=== PATIENT | male | born 1970 | race Caucasian/White ===

== ENCOUNTER 2021-11-28 13:18 | Observation (INO) | payer OTHER, MEDICARE ==
[2021-11-28] MEDS ORDERED: NITROGLYCERIN OINT 1 INCH/GM PACKET TOPICAL STA (13:25)
--- NOTE | 2021-11-28 13:30 | ED ---
General Adult HPI - General Stated complaint: right side numbness Time Seen by Provider: 11/28/21 13:18 Source: patient, RN notes reviewed, old records reviewed - History of Present Illness Initial comments: This is a 51-year-old male who presents emergency Department from [facility] where he is rehabilitating from alcohol abuse and cocaine. Patient states she has been having intermittent chest pain lasting 15-20 minutes at a time for the last 4 days. Patient states headache began today but he also started having some tingling to his face arm and leg which has been constant for the last 3 or 4 hours but he has no decreased sensation in no lack of function. Patient states she's had no slurred speech. Patient denies headache patient denies any actual numbness or weakness. Patient denies any recent fever chills or cough. Patient denies any chest pain currently. Patient denies any shortness of breath currently. Patient states the chest pain he had earlier did not radiate anywhere he was not more short of breath than normal. Patient states he is a smoker. Patient states he told me a high blood pressure and he was given Catapres at [facility]. Patient also complaining that he had swelling to the right hand which is resolved at this time - Related Data Home Medications Medication Instructions Recorded Confirmed Acetaminophen [Tylenol 8 Hour] 650 mg PO Q4H PRN MDD 1950 MG 11/28/21 11/28/21 Calcium, Magnesium, Zinc, With Vit 1 tab PO TID PRN 11/28/21 11/28/21 D Chlorpheniramine Maleate 4 mg PO Q4H PRN 11/28/21 11/28/21 [Chlor-Trimeton] Docusate [Colace] 100 mg PO BID PRN 11/28/21 11/28/21 Ibuprofen [Motrin Ib] 600 mg PO Q6H PRN 11/28/21 11/28/21 Mirtazapine [Remeron] 15 - 30 mg PO HS PRN 11/28/21 11/28/21 Multivitamins, Thera [Multivitamin 1 tab PO DAILY 11/28/21 11/28/21 (formulary)] Thiamine [Vitamin B-1] 100 mg PO DAILY 11/28/21 11/28/21 bisacodyL [Dulcolax] 5 mg PO BID PRN 11/28/21 11/28/21 busPIRone HCl [Buspar] 10 mg PO TID 11/28/21 11/28/21 cloNIDine HCL [Catapres] 0.1 - 0.3 mg PO Q4H PRN 11/28/21 11/28/21 lisinopriL [Zestril] 10 mg PO DAILY 11/28/21 11/28/21 ondansetron HCL [Zofran] 8 mg PO Q6H PRN 11/28/21 11/28/21 Allergies Allergy/AdvReac Type Severity Reaction Status Date / Time No Known Allergies Allergy Verified 11/28/21 15:41 Review of Systems ROS Statement: Those systems with pertinent positive or pertinent negative responses have been documented in the HPI. ROS Other: All systems not noted in ROS Statement are negative. General Exam - General Exam Comments Initial Comments: GENERAL: Patient is well-developed and well-nourished. Patient is nontoxic and well- hydrated and is in no acute distress. ENT: Neck is soft and supple. No significant lymphadenopathy is noted. Oropharynx is clear. Moist mucous membranes. Neck has full range of motion without eliciting any pain. EYES: The sclera were anicteric and conjunctiva were pink and moist. Extraocular movements were intact and pupils were equal round and reactive to light. Eyelids were unremarkable. PULMONARY: Unlabored respirations. Good breath sounds bilaterally. No audible rales rhonchi or wheezing was noted. CARDIOVASCULAR: There is a regular rate and rhythm without any murmurs gallops or rubs. ABDOMEN: Soft and nontender with normal bowel sounds. SKIN: Skin is clear with no lesions or rashes and otherwise unremarkable. NEUROLOGIC: Patient is alert and oriented x3. Cranial nerves II through XII are grossly intact. Motor and sensory are also intact. Normal speech, volume and content. Symmetrical smile. Cerebellar exam grossly intact. Patient's NIH is 0 MUSCULOSKELETAL: Normal extremities with adequate strength and full range of motion. No lower extremity swelling or edema. No calf tenderness. LYMPHATICS: No significant lymphadenopathy is noted PSYCHIATRIC: Normal psychiatric evaluation. Course Vital Signs 11/28/21 13:25 Temperature 98.3 F Pulse Rate 75 Respiratory 16 Rate Blood Pressure 143/89 O2 Sat by Pulse 98 Oximetry Medical Decision Making - Medical Decision Making EKG shows sinus rhythm at 62 bpm NC interval 239 QRSs 85 QT interval 371 QTC is 377. Patient's EKG shows no ST segment elevation or depression.0 Chest x-ray shows no acute abnormality. I went back in and reevaluated the patient patient was no longer having any chest pain but continued to have some tingling in the arm and leg I spoke with Dr. Peralta she agreed to admit the patient admitted the patient wrote admitting orders. - Lab Data Result diagrams: 11/28/21 13:42 11/28/21 13:42 Lab Results 11/28/21 11/28/21 11/28/21 Range/Units 12:00 13:42 13:42 WBC 7.8 (3.8-10.6) k/uL RBC 4.32 (4.30-5.90) m/uL Hgb 14.4 (13.0-17.5) gm/dL Hct 44.7 (39.0-53.0) % MCV 103.6 H (80.0-100.0) fL MCH 33.4 (25.0-35.0) pg MCHC 32.2 (31.0-37.0) g/dL RDW 13.3 (11.5-15.5) % Plt Count 235 (150-450) k/uL MPV 7.4 Neutrophils % 65 % Lymphocytes % 23 % Monocytes % 6 % Eosinophils % 3 % Basophils % 1 % Neutrophils # 5.1 (1.3-7.7) k/uL Lymphocytes # 1.8 (1.0-4.8) k/uL Monocytes # 0.5 (0-1.0) k/uL Eosinophils # 0.2 (0-0.7) k/uL Basophils # 0.1 (0-0.2) k/uL Macrocytosis Slight PT 10.7 (9.0-12.0) sec INR 1.0 (<1.2) APTT 21.8 L (22.0-30.0) sec Sodium (137-145) mmol/L Potassium (3.5-5.1) mmol/L Chloride (98-107) mmol/L Carbon Dioxide (22-30) mmol/L Anion Gap mmol/L BUN (9-20) mg/dL Creatinine (0.66-1.25) mg/dL Est GFR (CKD-EPI)AfAm (>60 ml/min/1.73 sqM) Est GFR (CKD-EPI)NonAf (>60 ml/min/1.73 sqM) Glucose (74-99) mg/dL Calcium (8.4-10.2) mg/dL Magnesium (1.6-2.3) mg/dL Total Bilirubin (0.2-1.3) mg/dL AST (17-59) U/L ALT (4-49) U/L Alkaline Phosphatase (38-126) U/L Troponin I (0.000-0.034) ng/mL Total Protein (6.3-8.2) g/dL Albumin (3.5-5.0) g/dL Urine Color Urine Appearance (Clear) Urine pH (5.0-8.0) Ur Specific [place] (1.001-1.035) Urine Protein (Negative) Urine Glucose (UA) (Negative) Urine Ketones (Negative) Urine Blood (Negative) Urine Nitrite (Negative) Urine Bilirubin (Negative) Urine Urobilinogen (<2.0) mg/dL Ur Leukocyte Esterase (Negative) Urine Opiates Screen Not Detected (NotDetected) Ur Oxycodone Screen Not Detected (NotDetected) Urine Methadone Screen Not Detected (NotDetected) Ur Propoxyphene Screen Not Detected (NotDetected) Ur Barbiturates Screen Not Detected (NotDetected) U Tricyclic Antidepress Not Detected (NotDetected) Ur Phencyclidine Scrn Not Detected (NotDetected) Ur Amphetamines Screen Not Detected (NotDetected) U Methamphetamines Scrn Not Detected (NotDetected) U Benzodiazepines Scrn Not Detected (NotDetected) Urine Cocaine Screen Not Detected (NotDetected) U Marijuana (THC) Screen Not Detected (NotDetected) 11/28/21 11/28/21 11/28/21 Range/Units 13:42 13:42 15:06 WBC (3.8-10.6) k/uL RBC (4.30-5.90) m/uL Hgb (13.0-17.5) gm/dL Hct (39.0-53.0) % MCV (80.0-100.0) fL MCH (25.0-35.0) pg MCHC (31.0-37.0) g/dL RDW (11.5-15.5) % Plt Count (150-450) k/uL MPV Neutrophils % % Lymphocytes % % Monocytes % % Eosinophils % % Basophils % % Neutrophils # (1.3-7.7) k/uL Lymphocytes # (1.0-4.8) k/uL Monocytes # (0-1.0) k/uL Eosinophils # (0-0.7) k/uL Basophils # (0-0.2) k/uL Macrocytosis PT (9.0-12.0) sec INR (<1.2) APTT (22.0-30.0) sec Sodium 140 (137-145) mmol/L Potassium 4.0 (3.5-5.1) mmol/L Chloride 108 H (98-107) mmol/L Carbon Dioxide 25 (22-30) mmol/L Anion Gap 7 mmol/L BUN 14 (9-20) mg/dL Creatinine 0.68 (0.66-1.25) mg/dL Est GFR (CKD-EPI)AfAm >90 (>60 ml/min/1.73 sqM) Est GFR (CKD-EPI)NonAf >90 (>60 ml/min/1.73 sqM) Glucose 104 H (74-99) mg/dL Calcium 9.1 (8.4-10.2) mg/dL Magnesium 2.0 (1.6-2.3) mg/dL Total Bilirubin 0.2 (0.2-1.3) mg/dL AST 32 (17-59) U/L ALT 31 (4-49) U/L Alkaline Phosphatase 55 (38-126) U/L Troponin I <0.012 (0.000-0.034) ng/mL Total Protein 6.0 L (6.3-8.2) g/dL Albumin 3.5 (3.5-5.0) g/dL Urine Color Light Yellow Urine Appearance Clear (Clear) Urine pH 5.5 (5.0-8.0) Ur Specific [place] 1.010 (1.001-1.035) Urine Protein Negative (Negative) Urine Glucose (UA) Negative (Negative) Urine Ketones Negative (Negative) Urine Blood Negative (Negative) Urine Nitrite Negative (Negative) Urine Bilirubin Negative (Negative) Urine Urobilinogen <2.0 (<2.0) mg/dL Ur Leukocyte Esterase Negative (Negative) Urine Opiates Screen (NotDetected) Ur Oxycodone Screen (NotDetected) Urine Methadone Screen (NotDetected) Ur Propoxyphene Screen (NotDetected) Ur Barbiturates Screen (NotDetected) U Tricyclic Antidepress (NotDetected) Ur Phencyclidine Scrn (NotDetected) Ur Amphetamines Screen (NotDetected) U Methamphetamines Scrn (NotDetected) U Benzodiazepines Scrn (NotDetected) Urine Cocaine Screen (NotDetected) U Marijuana (THC) Screen (NotDetected) Disposition Clinical Impression: Chest pain Disposition: ADMITTED IP TO THIS HOSP Referrals: None,Stated [Primary Care Provider] - 1-2 days Time of Disposition: 16:12
[2021-11-28 14:00] LABS: Basophils # (A) 0.1 k/uL (0-0.2); Basophils % (A) 1 %; Eosinophils # (A) 0.2 k/uL (0-0.7); Eosinophils % (A) 3 %; HCT 44.7 % (39.0-53.0); HGB 14.4 gm/dL (13.0-17.5); Lymphocytes # (A) 1.8 k/uL (1.0-4.8); Lymphocytes % (A) 23 %; MCH 33.4 pg (25.0-35.0); MCHC 32.2 g/dL (31.0-37.0); MCV 103.6 fL (80.0-100.0); Macrocytosis Slight; Mean Platelet Volume 7.4; Monocytes # (A) 0.5 k/uL (0-1.0); Monocytes % (A) 6 %; Neutrophils # (A) 5.1 k/uL (1.3-7.7); Neutrophils % (A) 65 %; Platelet Count 235 k/uL (150-450); RBC 4.32 m/uL (4.30-5.90); RDW 13.3 % (11.5-15.5); WBC 7.8 k/uL (3.8-10.6)
--- NOTE | 2021-11-28 14:06 | XR ---
EXAMINATION TYPE: XR chest 2V DATE OF EXAM: 11/28/2021 COMPARISON: NONE TECHNIQUE: PA and lateral views submitted. HISTORY: Chest Pain FINDINGS: The lungs are clear and there is no pneumothorax, pleural effusion, or focal pneumonia. Heart size normal. No overt failure. Mild hyperinflation related for asthma or COPD. Scoliosis of the spine. Hyp ertrophic change of the spine. IMPRESSION: 1. No acute process.
[2021-11-28 14:17] LABS: Prothrombin Time 10.7 sec (9.0-12.0)
[2021-11-28 14:24] LABS: Partial Thromboplastin Time 21.8 sec (22.0-30.0)
[2021-11-28 14:26] LABS: ALT 31 U/L (4-49); AST 32 U/L (17-59); African American GFR (CKD) >90 (>60 ml/min/1.73 sqM); Albumin 3.5 g/dL (3.5-5.0); Alkaline Phosphatase 55 U/L (38-126); Anion Gap 7 mmol/L; Blood Urea Nitrogen 14 mg/dL (9-20); Calcium 9.1 mg/dL (8.4-10.2); Carbon Dioxide 25 mmol/L (22-30); Chloride 108 mmol/L (98-107); Glucose 104 mg/dL (74-99); Non-African American GFR(CKD) >90 (>60 ml/min/1.73 sqM); Sodium 140 mmol/L (137-145); Total Bilirubin 0.2 mg/dL (0.2-1.3)
[2021-11-28 15:25] LABS: Appearance,Urine Clear (Clear); Bilirubin,Urine Negative (Negative); Blood,Urine Negative (Negative); Color,Urine Light Yellow; Glucose,Urine (UA) Negative (Negative); Ketones,Urine Negative (Negative); Leukocyte Esterase,Urine Negative (Negative); Nitrite,Urine Negative (Negative); PH, Urine 5.5 (5.0-8.0); Protein,Urine Negative (Negative); Urobilinogen,Urine <2.0 mg/dL (<2.0)
[2021-11-28 15:42] LABS: Amphetamine Screen,Urine Not Detected (NotDetected); Barbiturate Screen,Urine Not Detected (NotDetected); Benzodiazepines Screen,Urine Not Detected (NotDetected); Cocaine Screen,Urine Not Detected (NotDetected); Methadone Screen, Urine Not Detected (NotDetected); Opiate Screen,Urine Not Detected (NotDetected); Oxycodone Screen, Urine Not Detected (NotDetected); Phencyclidine Screen,Urine Not Detected (NotDetected); Tricyclic Antidepressant,Urine Not Detected (NotDetected); Urn Cannabinoid Scrn Not Detected (NotDetected)
[2021-11-28] MEDS ORDERED: NITROGLYCERIN SL TABS 0.4 MG TAB SUBLINGUAL PRN (16:12)
[2021-11-28] MEDS ORDERED: DOCUSATE 100 MG CAP PO PRN (16:16)
[2021-11-28] MEDS ORDERED: cloNIDine HCL 0.1 MG TAB PO PRN (16:33)
[2021-11-28] MEDS: NITROGLYCERIN OINT 1 INCH/GM PACKET TOPICAL SCH ×2 (18:18→23:18)
--- NOTE | 2021-11-28 18:21 | P.HPIM ---
History of Present Illness H&P Date: 11/28/21 History of Presenting Illness: Patient is a 51-year-old male with a past medical history of hypertension, anxiety, PTSD, inflammatory bowel disease status post multiple abdominal surgeries including colostomy and colostomy reversal, alcohol abuse, nicotine dependence, and daily cocaine use. Patient presented to the emergency department from [facility] for chief complaint of chest pain. Patient is currently in inpatient drug and alcohol rehabilitation Center at [facility] where he is undergoing withdrawal from cocaine and alcohol. He reports he last received benzodiazepines 4 days ago for treatment of his withdrawal and states that over the past 4 days he has been experiencing hypertension along with intermittent pain to midsternal chest radiating as a sharp tingling sensation into right arm and right lower jaw. Pt states he was told at this time that his blood pressure was very high and he was given a Catapres at [facility] prior to coming to our facility. Patient reports he is also concerned because he previously had some swelling in his right hand from a previous lab drawn but it is now resolved. Patient denies having any fevers, chills, dizziness, lightheadedness, changes in vision or hearing, changes in or difficulties with speech, dysphasia, palpitations, shortness of breath, exertional dyspnea, abdominal pain, nausea, vomiting, or experiencing any numbness or focal weakness in extremities. Patient underwent full evaluation in the emergency department. Upon arrival vital signs stable with blood pressure 143/89, heart rate 75, respiratory rate 16, temp 98.3F, and SpO2 of 98% on room air. An EKG was completed revealing sinus rhythm at 62 bpm with left ventricular hypertrophy. Chest x-ray was negative for acute cardiopulmonary process revealing mild hyperinflation related to COPD. CBC, coags, and CMP showing no significant abnormalities. Troponin less than 0.012. Urine drug screen negative and urinalysis also negative. Patient admitted under our services with consultation to cardiology. Review of systems: Pertinent positives and negatives as discussed in HPI, a complete review of systems was performed and all other systems are negative. Physical exam: Vital signs reviewed and stable. General: Nontoxic, no distress and appears stated age. Derm: Skin warm and dry, normal coloration for ethnicity. Head: Atraumatic, normocephalic and symmetric. Eyes: EOMs intact, no lid lag, and anicteric sclera Mouth: no lip lesions, mucus membranes moist Cardiovascular: regular rate and rhythm with normal S1S2, no murmur, positive posterior tibial pulses bilaterally, and cap refill < 2 seconds. Lungs: Respirations even, regular, and unlabored on room air. Lungs CTA bilaterally, no rhonchi, no rales, no wheezing, and no accessory muscle usage. Abdominal: soft, nontender to palpation, no guarding, no appreciable organomegaly Ext: ROM intact. No gross muscle atrophy, no edema, no contractures Neuro: Speech clear, face symmetrical and CN II-XII grossly intact with no noted focal neuro deficits Psych: Alert and oriented to person, place, time, and situation. Appropriate and pleasant affect. Assessment and Plan of Care: Chest pain, rule out acute coronary event -Cardiology consulted, appreciate further recommendations -Telemetry monitoring -Trend troponins -Cardiac diet, NPO at midnight -Aspirin -Lipid profile with a.m. labs. -Echocardiogram Hypertension -Monitor vital signs and continue daily medication regimen with lisinopril 10 mg each morning and when necessary clonidine 0.1 mg every 4 hours as needed for BP greater than 160/100. Inflammatory bowel disease status post multiple surgeries including colostomy and colostomy reversal -Continue bowel regimen with docusate 100 mg twice daily as needed for constipation. Alcohol abuse Cocaine abuse -Recommend continued cessation and returning to [facility] upon discharge. The patient is admitted with an anticipated less than 2 midnight stay for evaluation of chest pain CODE STATUS: Full code DVT prophylaxis: Heparin Discussed with: Patient and RN Anticipated discharge date: Tomorrow Anticipated discharge place: Return to [facility] A total of 43 minutes was spent on the care of this complex patient more than 50% of the time was spent in counseling and care coordination. Silvestre Issa NP rendered care for this patient independently, reviewed the findings and plan as documented in the note above. I did not physically speak with or examine the patient on this date. Past Medical History Past Medical History: Hypertension Additional Past Medical History / Comment(s): Diverticulitis Past Surgical History: Bowel Resection, Hernia Repair, Joint Replacement Additional Past Surgical History / Comment(s): approximately 10 abdominal surgeries, bilateral hip replacement Past Psychological History: Anxiety, Depression Smoking Status: Current every day smoker Past Alcohol Use History: Occasional Past Drug Use History: Cocaine, Marijuana Medications and Allergies Home Medications Medication Instructions Recorded Confirmed Type Acetaminophen [Tylenol 8 Hour] 650 mg PO Q4H PRN MDD 1950 MG 11/28/21 11/28/21 History Calcium, Magnesium, Zinc, With Vit 1 tab PO TID PRN 11/28/21 11/28/21 History D Chlorpheniramine Maleate 4 mg PO Q4H PRN 11/28/21 11/28/21 History [Chlor-Trimeton] Docusate [Colace] 100 mg PO BID PRN 11/28/21 11/28/21 History Ibuprofen [Motrin Ib] 600 mg PO Q6H PRN 11/28/21 11/28/21 History Mirtazapine [Remeron] 15 - 30 mg PO HS PRN 11/28/21 11/28/21 History Multivitamins, Thera [Multivitamin 1 tab PO DAILY 11/28/21 11/28/21 History (formulary)] Thiamine [Vitamin B-1] 100 mg PO DAILY 11/28/21 11/28/21 History bisacodyL [Dulcolax] 5 mg PO BID PRN 11/28/21 11/28/21 History busPIRone HCl [Buspar] 10 mg PO TID 11/28/21 11/28/21 History cloNIDine HCL [Catapres] 0.1 - 0.3 mg PO Q4H PRN 11/28/21 11/28/21 History lisinopriL [Zestril] 10 mg PO DAILY 11/28/21 11/28/21 History ondansetron HCL [Zofran] 8 mg PO Q6H PRN 11/28/21 11/28/21 History Allergies Allergy/AdvReac Type Severity Reaction Status Date / Time No Known Allergies Allergy Verified 11/28/21 15:41 Physical Exam Osteopathic Statement: *. No significant issues noted on an osteopathic structural exam other than those noted in the History and Physical/Consult. Vitals: Vital Signs Temp Pulse Resp BP Pulse Ox 11/28/21 13:25 98.3 F 75 16 143/89 98 Intake and Output 11/28/21 11/28/21 11/28/21 06:59 14:59 22:59 Other: Weight 97.069 kg Results CBC & Chem 7: 11/28/21 13:42 11/28/21 13:42 Labs: Abnormal Lab Results - Last 24 Hours (Table) 11/28/21 11/28/21 11/28/21 Range/Units 13:42 13:42 13:42 MCV 103.6 H (80.0-100.0) fL APTT 21.8 L (22.0-30.0) sec Chloride 108 H (98-107) mmol/L Glucose 104 H (74-99) mg/dL Total Protein 6.0 L (6.3-8.2) g/dL
[2021-11-28] MEDS: busPIRone HCl 10 MG TAB PO SCH (21:05)
[2021-11-28] MEDS ORDERED: MIRTAZAPINE 15 MG TAB PO PRN (21:07)
[2021-11-28] MEDS: diphenhydrAMINE 25 MG CAP PO PRN (21:25)
[2021-11-28] MEDS: NICOTINE 21MG/24HR PATCH TRANSDERM SCH (21:25)
[2021-11-28] MEDS: ACETAMINOPHEN TAB 325 MG TAB PO PRN (23:16)
[2021-11-28] MEDS: HEPARIN SODIUM,PORCINE/PF 5,000 UNIT/0.5 ML SYRINGE SQ SCH (23:17)
[2021-11-29 03:38] VITALS: RESP 18
[2021-11-29] MEDS: diphenhydrAMINE 25 MG CAP PO PRN (03:38)
[2021-11-29] MEDS: NITROGLYCERIN OINT 1 INCH/GM PACKET TOPICAL SCH (06:19)
[2021-11-29] MEDS: ACETAMINOPHEN TAB 325 MG TAB PO PRN (06:19)
--- NOTE | 2021-11-29 08:05 | P.CRDCN ---
History of Present Illness Consult date: 11/29/21 History of present illness: History of Present Illness: The patient is a 51-year-old male with known history of chronic tobacco use, hypertension, prior history of alcohol and crack use who was transferred from [facility] for further evaluation. He complained of swelling in the right hand tingling in the hand, shoulder and right lower extremity. He denies any chest discomfort, dyspnea or dizziness. He denies any palpitations. He is average in his exercise tolerance and has no symptoms of chest discomfort. He has no history of cardiac disease. He has a cough related to lisinopril. He has no PND, orthopnea or significant peripheral edema. His cardiac enzymes were unremarkable and his EKG showed no acute changes. Patient has been in rehab for 12 days. He's feeling well this morning and anxious to get back to rehab. He has a prior history of anxiety and PTSD and prior abdominal surgery. Medications: Lisinopril 10 mg daily, clonidine on a when necessary basis, BuSpar Review of Systems: Respiratory: No history of asthma, bronchitis or recent cough. GI: No nausea or vomiting . No history of peptic ulcer disease. No recent GI bleed. : No hematuria or dysuria. Nervous System: No stroke or seizure. Physical Examination: 51-year-old male, alert oriented no apparent distress ,Blood pressure 111/60, Heart rate 57 Head: Normocephalic. Eyes: Sclerae nonicteric. Neck: Good carotid upstroke, no bruit, no jugular venous distention. Lungs: Clear to auscultation. Heart: Regular rate and rhythm, S1-S2, no S3, no rub. No murmur. Abdomen: Soft nontender, positive bowel sounds no organomegaly. Extremities: No edema, intact distal pulses. Labs: Troponin less than 0.012, BUN 14, creatinine 0.68, potassium 4.0, hemoglobin 14.4 EKG: Sinus mechanism with evidence of LVH and nonspecific ST-T wave changes Impression: 1. Right arm tingling, no evidence to suggest cardiac etiology 2. History of hypertension 3. History of chronic tobacco use 4. History of alcohol and crack cocaine abuse, in rehab Plan: 1. Change lisinopril to amlodipine 2. Obtain an echocardiogram with Doppler 3. If no segmental wall motion abnormality the patient can be transferred back to [facility] 4. Depending on his progress further recommendations will be made 5. Thank you for this consult we will follow with you Past Medical History Past Medical History: Hypertension Additional Past Medical History / Comment(s): Diverticulitis History of Any Multi-Drug Resistant Organisms: None Reported Past Surgical History: Bowel Resection, Hernia Repair, Joint Replacement Additional Past Surgical History / Comment(s): approximately 10 abdominal surgeries, bilateral hip replacement Past Anesthesia/Blood Transfusion Reactions: No Reported Reaction Past Psychological History: Anxiety, Depression Smoking Status: Current every day smoker Past Alcohol Use History: Occasional Past Drug Use History: Cocaine, Marijuana Medications and Allergies Home Medications Medication Instructions Recorded Confirmed Type Acetaminophen [Tylenol 8 Hour] 650 mg PO Q4H PRN MDD 1950 MG 11/28/21 11/28/21 History Calcium, Magnesium, Zinc, With Vit 1 tab PO TID PRN 11/28/21 11/28/21 History D Chlorpheniramine Maleate 4 mg PO Q4H PRN 11/28/21 11/28/21 History [Chlor-Trimeton] Docusate [Colace] 100 mg PO BID PRN 11/28/21 11/28/21 History Ibuprofen [Motrin Ib] 600 mg PO Q6H PRN 11/28/21 11/28/21 History Mirtazapine [Remeron] 15 - 30 mg PO HS PRN 11/28/21 11/28/21 History Multivitamins, Thera [Multivitamin 1 tab PO DAILY 11/28/21 11/28/21 History (formulary)] Thiamine [Vitamin B-1] 100 mg PO DAILY 11/28/21 11/28/21 History bisacodyL [Dulcolax] 5 mg PO BID PRN 11/28/21 11/28/21 History busPIRone HCl [Buspar] 10 mg PO TID 11/28/21 11/28/21 History cloNIDine HCL [Catapres] 0.1 - 0.3 mg PO Q4H PRN 11/28/21 11/28/21 History lisinopriL [Zestril] 10 mg PO DAILY 11/28/21 11/28/21 History ondansetron HCL [Zofran] 8 mg PO Q6H PRN 11/28/21 11/28/21 History Allergies Allergy/AdvReac Type Severity Reaction Status Date / Time No Known Allergies Allergy Verified 11/28/21 15:41 Physical Exam Vitals: Vital Signs Temp Pulse Pulse Resp BP BP Pulse Ox 11/29/21 02:00 97.9 F 57 L 18 111/66 96 11/28/21 21:01 97.9 F 54 L 19 138/91 98 11/28/21 16:12 98 11/28/21 13:25 98.3 F 75 16 143/89 98 Intake and Output 11/28/21 11/29/21 11/29/21 22:59 06:59 14:59 Intake Total 500 Balance 500 Intake: Oral 500 Other: Voiding Method Toilet Toilet # Voids 2 Weight 97.069 kg Results 11/28/21 13:42 11/28/21 13:42 Cardiac Enzymes 11/28/21 11/28/21 11/28/21 Range/Units 13:42 13:42 16:53 AST 32 (17-59) U/L Troponin I <0.012 0.013 (0.000-0.034) ng/mL 11/28/21 Range/Units 19:10 AST (17-59) U/L Troponin I <0.012 (0.000-0.034) ng/mL Coagulation 11/28/21 Range/Units 13:42 PT 10.7 (9.0-12.0) sec APTT 21.8 L (22.0-30.0) sec CBC 11/28/21 Range/Units 13:42 WBC 7.8 (3.8-10.6) k/uL RBC 4.32 (4.30-5.90) m/uL Hgb 14.4 (13.0-17.5) gm/dL Hct 44.7 (39.0-53.0) % Plt Count 235 (150-450) k/uL Comprehensive Metabolic Panel 11/28/21 Range/Units 13:42 Sodium 140 (137-145) mmol/L Potassium 4.0 (3.5-5.1) mmol/L Chloride 108 H (98-107) mmol/L Carbon Dioxide 25 (22-30) mmol/L BUN 14 (9-20) mg/dL Creatinine 0.68 (0.66-1.25) mg/dL Glucose 104 H (74-99) mg/dL Calcium 9.1 (8.4-10.2) mg/dL AST 32 (17-59) U/L ALT 31 (4-49) U/L Alkaline Phosphatase 55 (38-126) U/L Total Protein 6.0 L (6.3-8.2) g/dL Albumin 3.5 (3.5-5.0) g/dL Current Medications Generic Name Dose Route Start Last Admin Trade Name Freq PRN Reason Stop Dose Admin Acetaminophen 650 mg 11/28/21 21:48 11/29/21 06:19 Acetaminophen Tab 325 Mg Tab PO 650 mg Q4HR PRN Administration Fever and/ or Pain Amlodipine Besylate 5 mg 11/29/21 09:00 Amlodipine 5 Mg Tab PO DAILY [facility] Aspirin 81 mg 11/29/21 09:00 Aspirin 325 Mg Tab PO DAILY [facility] Buspirone HCl 10 mg 11/28/21 22:00 11/28/21 21:05 Buspirone Hcl 10 Mg Tab PO 10 mg TID POPEYE Administration Clonidine 0.1 mg 11/28/21 16:33 Clonidine Hcl 0.1 Mg Tab PO Q4H PRN X72 HRS BP >160/100 Diphenhydramine HCl 25 mg 11/28/21 21:08 11/29/21 03:38 Diphenhydramine 25 Mg Cap PO 25 mg QID PRN Administration Anxiety Docusate Sodium 100 mg 11/28/21 16:16 Docusate 100 Mg Cap PO BID PRN Constipation Heparin Sodium (Porcine) 5,000 unit 11/29/21 00:00 11/28/21 23:17 Heparin Sodium,Porcine/Pf 5,000 Unit/0.5 Ml Syringe SQ 5,000 unit Q8HR POPEYE Administration Mirtazapine 15 mg 11/28/21 21:07 11/28/21 21:27 Mirtazapine 15 Mg Tab PO 15 mg HS PRN Administration SLEEP Multivitamins 1 each 11/29/21 09:00 Multivitamins, Thera 1 Each Tab PO DAILY [facility] Nicotine 1 patch 11/28/21 21:15 11/28/21 21:25 Nicotine 21mg/24hr Patch TRANSDERM 1 patch DAILY [facility] Administration Nitroglycerin 0.4 mg 11/28/21 16:12 Nitroglycerin Sl Tabs 0.4 Mg Tab SUBLINGUAL Q5M PRN Chest Pain Thiamine HCl 100 mg 11/29/21 09:00 Thiamine 100 Mg Tab PO DAILY P[facility] Intake and Output 11/28/21 11/29/21 11/29/21 22:59 06:59 14:59 Intake Total 500 Balance 500 Intake: Oral 500 Other: Voiding Method Toilet Toilet # Voids 2 Weight 97.069 kg 11/28/21 13:42 11/28/21 13:42
[2021-11-29 08:08] VITALS: BP 127/75; PULSE 61; TEMP 98
[2021-11-29] MEDS ORDERED: MULTIVITAMINS, THERA 1 EACH TAB PO SCH (09:00)
[2021-11-29] MEDS ORDERED: ASPIRIN 325 MG TAB PO SCH (09:00)
[2021-11-29] MEDS ORDERED: lisinopriL 10 MG TAB PO SCH (09:00)
[2021-11-29] MEDS ORDERED: amLODIPine 5 MG TAB PO SCH (09:00)
[2021-11-29] MEDS ORDERED: ASPIRIN 81 MG PO SCH (09:00)
[2021-11-29] MEDS ORDERED: THIAMINE 100 MG TAB PO SCH (09:00)
[2021-11-29] MEDS: NICOTINE 21MG/24HR PATCH TRANSDERM SCH (10:09)
[2021-11-29] MEDS: busPIRone HCl 10 MG TAB PO SCH (10:09)
[2021-11-29] MEDS: HEPARIN SODIUM,PORCINE/PF 5,000 UNIT/0.5 ML SYRINGE SQ SCH (10:10)
[2021-11-29 10:39] LABS: Chol/HDL Ratio 4.21 Ratio; LDL Cholesterol,Calculated 98.4 mg/dL (0.0-131.0)
--- NOTE | 2021-11-29 12:39 | CA ---
Transthoracic Echo Report Name: Gorge Gaston Age: 51 Gender: M : 1970 Exam Date: 11/29/2021 10:13 Exam Location: [place] [facility] Ht (in): 73 Wt (lb): 214 Ordering Physician: Silvestre Issa Attending/Referring Phys: Mottler Operator Christy Del Rosario RDCS Procedure CPT: Indications: Assess structure and function Cardiac Hx: Technical Quality: Fair Contrast 1: Total Dose (mL): Contrast 2: Total Dose (mL): MEASUREMENTS (Male / Female) Normal Values 2D ECHO LV Diastolic Diameter PLAX 4.5 cm 4.2 - 5.9 / 3.9 - 5.3 cm LV Systolic Diameter PLAX 2.5 cm IVS Diastolic Thickness 1.4 cm 0.6 - 1.0 / 0.6 - 0.9 cm LVPW Diastolic Thickness 1.5 cm 0.6 - 1.0 / 0.6 - 0.9 cm LV Relative Wall Thickness 0.6 RV Internal Dim ED PLAX 3.1 cm LA Volume 75.3 cm??? 18 - 58 / 22 - 52 cm??? M-MODE Aortic Root Diameter MM 3.3 cm LA Systolic Diameter MM 3.4 cm LA Ao Ratio MM 1.0 AV Cusp Separation MM 2.2 cm DOPPLER AV Peak Velocity 111.6 cm/s AV Peak Gradient 5.0 mmHg LVOT Peak Velocity 99.0 cm/s LVOT Peak Gradient 3.9 mmHg MV Area PHT 3.2 cm??? Mitral E Point Velocity 84.7 cm/s Mitral A Point Velocity 63.9 cm/s Mitral E to A Ratio 1.3 MV Deceleration Time 234.5 ms MV E' Velocity 8.5 cm/s Mitral E to MV E' Ratio 10.0 TR Peak Velocity 211.4 cm/s TR Peak Gradient 17.9 mmHg Right Ventricular Systolic Press 22.6 mmHg FINDINGS Left Ventricle Moderately increased left ventricular wall thickness. Normal left ventricular systolic function with no obvious regional wall motion abnormalities. Left ventricular ejection fraction is estimated at 55-60 %. Right Ventricle Normal right ventricular size. Right ventricular systolic pressure within normal limits. Right Atrium Normal right atrial size. Left Atrium Moderately increased left atrial volume. Mitral Valve Structurally normal mitral valve. Mild mitral regurgitation. Aortic Valve No aortic valve stenosis or regurgitation. Tricuspid Valve Mild tricuspid regurgitation.structurally normal tricuspid valve. Pulmonic Valve Trace pulmonic regurgitation. Pericardium No pericardial effusion. Aorta Normal size aortic root and proximal ascending aorta. CONCLUSIONS 1. Normal left ventricle size and systolic function 2. Mild mitral and tricuspid regurgitation Previewed by: Dr. Walker Pierce MD (Electronically Signed) Final Date: 29 November 2021 12:37
--- NOTE | 2021-11-29 14:20 | P.DS ---
Providers Date of admission: 11/28/21 16:12 Expected date of discharge: 11/29/21 Attending physician: Elizabet Peralta DO Consults: 11/28/21 16:36 Consult Physician Routine Consulting Provider: Delvin Michelle Consult Reason/Comments: chest pain Do you want consulting provider notified?: Yes Primary care physician: Stated None Hospital Course: Discharge Diagnosis: Chest pain, acute coronary event ruled out. lisinopril was discontinued and patient started on amlodipine 5 mg daily. Hypertension. Monitor vital signs and continue daily medication regimen with amlodipine. Inflammatory bowel disease status post multiple surgeries including colostomy and colostomy reversal. Continue bowel regimen with docusate 100 mg twice daily as needed for constipation. Alcohol abuse. Recommend continued cessation and returning to [facility] upon discharge. Cocaine abuse. Recommend continued cessation and returning to [facility] upon discharge. Hospital Course: Patient is a 51-year-old male with a past medical history of hypertension, anxiety, PTSD, inflammatory bowel disease status post multiple abdominal surgeries including colostomy and colostomy reversal, alcohol abuse, nicotine dependence, and daily cocaine use. Patient presented to the emergency department from [facility] for chief complaint of chest pain. Patient is currently in inpatient drug and alcohol rehabilitation Center at [facility] ere he is undergoing withdrawal from cocaine and alcohol. He reports he last received benzodiazepines 4 days ago for treatment of his withdrawal and states that over the past 4 days he has been experiencing hypertension along with intermittent pain to midsternal chest radiating as a sharp tingling sensation into right arm and right lower jaw. Pt states he was told at this time that his blood pressure was very high and he was given a Catapres at [facility] prior to coming to our facility. Patient reports he is also concerned because he previously had some swelling in his right hand from a previous lab drawn but it is now resolved. Patient denies having any fevers, chills, dizziness, lightheadedness, changes in vision or hearing, changes in or difficulties with speech, dysphasia, palpitations, shortness of breath, exertional dyspnea, abdominal pain, nausea, vomiting, or experiencing any numbness or focal weakness in extremities. Patient underwent full evaluation in the emergency department. Upon arrival vital signs stable with blood pressure 143/89, heart rate 75, respiratory rate 16, temp 98.3F, and SpO2 of 98% on room air. An EKG was completed revealing sinus rhythm at 62 bpm with left ventricular hypertrophy. Chest x-ray was negative for acute cardiopulmonary process revealing mild hyperinflation related to COPD. CBC, coags, and CMP showing no significant abnormalities. Troponin less than 0.012. Urine drug screen negative and urinalysis also negative. Patient admitted under our services with consultation to cardiology. Physical exam: Vital signs reviewed and stable. General: Nontoxic, no distress and appears stated age. Derm: Skin warm and dry, normal coloration for ethnicity. Head: Atraumatic, normocephalic and symmetric. Eyes: EOMs intact, no lid lag, and anicteric sclera Mouth: no lip lesions, mucus membranes moist Cardiovascular: regular rate and rhythm with normal S1S2, no murmur, positive posterior tibial pulses bilaterally, and cap refill < 2 seconds. Lungs: Respirations even, regular, and unlabored on room air. Lungs CTA bilaterally, no rhonchi, no rales, no wheezing, and no accessory muscle usage. Abdominal: soft, nontender to palpation, no guarding, no appreciable organomegaly Ext: ROM intact. No gross muscle atrophy, no edema, no contractures Neuro: Speech clear, face symmetrical and CN II-XII grossly intact with no noted focal neuro deficits Psych: Alert and oriented to person, place, time, and situation. Appropriate and pleasant affect. A total of 35 minutes of time were spent preparing this complex discharge summary. Pt was discharged on 11/29/21 at 2:19 PM Patient Condition at Discharge: Stable Plan - Discharge Summary New Discharge Prescriptions: New amLODIPine [Norvasc] 5 mg PO DAILY 30 Days #30 tab Continue ondansetron HCL [Zofran] 8 mg PO Q6H PRN PRN Reason: Nausea Acetaminophen [Tylenol 8 Hour] 650 mg PO Q4H PRN MDD 1950 MG PRN Reason: Pain Or Fever > 100.5 Thiamine [Vitamin B-1] 100 mg PO DAILY Ibuprofen [Motrin Ib] 600 mg PO Q6H PRN PRN Reason: Pain Or Fever > 100.5 bisacodyL [Dulcolax] 5 mg PO BID PRN PRN Reason: Constipation X3 DAYS Docusate [Colace] 100 mg PO BID PRN PRN Reason: Constipation Chlorpheniramine Maleate [Chlor-Trimeton] 4 mg PO Q4H PRN PRN Reason: ALLERGIES cloNIDine HCL [Catapres] 0.1 - 0.3 mg PO Q4H PRN PRN Reason: X72 HRS BP >160/100 Mirtazapine [Remeron] 15 - 30 mg PO HS PRN PRN Reason: SLEEP Multivitamins, Thera [Multivitamin (formulary)] 1 tab PO DAILY Calcium, Magnesium, Zinc, With Vit D 1 tab PO TID PRN PRN Reason: SUPPLEMENT busPIRone HCl [Buspar] 10 mg PO TID Discontinued lisinopriL [Zestril] 10 mg PO DAILY Discharge Medication List Acetaminophen [Tylenol 8 Hour] 650 mg PO Q4H PRN MDD 1950 MG 11/28/21 [History] Calcium, Magnesium, Zinc, With Vit D 1 tab PO TID PRN 11/28/21 [History] Chlorpheniramine Maleate [Chlor-Trimeton] 4 mg PO Q4H PRN 11/28/21 [History] Docusate [Colace] 100 mg PO BID PRN 11/28/21 [History] Ibuprofen [Motrin Ib] 600 mg PO Q6H PRN 11/28/21 [History] Mirtazapine [Remeron] 15 - 30 mg PO HS PRN 11/28/21 [History] Multivitamins, Thera [Multivitamin (formulary)] 1 tab PO DAILY 11/28/21 [History] Thiamine [Vitamin B-1] 100 mg PO DAILY 11/28/21 [History] bisacodyL [Dulcolax] 5 mg PO BID PRN 11/28/21 [History] busPIRone HCl [Buspar] 10 mg PO TID 11/28/21 [History] cloNIDine HCL [Catapres] 0.1 - 0.3 mg PO Q4H PRN 11/28/21 [History] ondansetron HCL [Zofran] 8 mg PO Q6H PRN 11/28/21 [History] amLODIPine [Norvasc] 5 mg PO DAILY 30 Days #30 tab 11/29/21 [Rx] Follow up Appointment(s)/Referral(s): [facility] [Outside] - As Needed (called ride will be on way) None,Stated [Primary Care Provider] - 1-2 days Patient Instructions/Handouts: Chest Pain (DC) Activity/Diet/Wound Care/Special Instructions: Activity: As tolerated. Take breaks as needed. Diet: Heart healthy and carb consistent diet. Avoid salts, or foods with hidden salts such as canned or boxed foods and frozen dinners. Extra salt makes your heart work harder and traps the fluid in your body for longer. Special Instructions: Take all of your medications as directed and remember to keep all of your doctor's appointments and follow-up as needed. Good luck on your journey towards recovery, strongly recommend continued stopping of the use of any alcohol and cocaine. Thank you for allowing us to participate in your care, it was truly a pleasure having you for our patient!!! Patient medically cleared to return to [facility]. Discharge Disposition: HOME SELF-CARE
== END 2021-11-29 15:10 | disposition home or self-care (01) ==
LOC: EC 13:18 → 6NMEDSUR 16:12
PROVIDERS: ADMIT Internal Medicine; ATTEND Internal Medicine
DX: R07.89 Other chest pain (principal); I11.9 Hypertensive heart disease without heart failure; F10.10 Alcohol abuse, uncomplicated; F14.10 Cocaine abuse, uncomplicated; I08.1 Rheumatic disorders of both mitral and tricuspid valves; F12.90 Cannabis use, unspecified, uncomplicated; M41.80 Other forms of scoliosis, site unspecified; F17.200 Nicotine dependence, unspecified, uncomplicated; F41.9 Anxiety disorder, unspecified; F32.A Depression, unspecified; F43.10 Post-traumatic stress disorder, unspecified; Z79.899 Other long term (current) drug therapy; Z96.643 Presence of artificial hip joint, bilateral
CPT/HCPCS: 96372 ×2; 99285; 36415; 93005; 93306; 80061; 80053; 83735; 84484; 85025; 85610; 85730; 81003; 80306; 71046; G0378 ×2; S4990 ×2; J1644 ×2

== ENCOUNTER 2023-04-01 13:31 | Observation (INO) | payer OTHER, MEDICARE ==
[2023-04-01] MEDS ORDERED: methylPREDNISolone SOD SUCCI 125 MG/2 ML VIAL IV STA (13:42)
--- NOTE | 2023-04-01 13:50 | ED ---
SOB HPI - General Chief Complaint: Shortness of Breath Stated Complaint: BENJI Time Seen by Provider: 04/01/23 13:33 Source: patient, EMS, RN notes reviewed Mode of arrival: EMS Limitations: no limitations - History of Present Illness Initial Comments: 53-year-old male presents emergency Department with chief complaint of shortness breath, cough congestion. Patient states he's been sick for over a week. Patient's been on multiple antibiotics, steroids. Patient did receive [address] to emergency department from [place]. Patient states that he's had recurrent pneumonia when he ends up in rehab. Patient states he is a daily smoker he states he has some chest pain associated with this. - Related Data Home Medications Medication Instructions Recorded Confirmed Calcium, Magnesium, Zinc, With Vit 1 tab PO TID PRN 11/28/21 04/01/23 D Chlorpheniramine Maleate 4 mg PO Q4H PRN 11/28/21 04/01/23 [Chlor-Trimeton] Docusate [Colace] 100 mg PO BID PRN 11/28/21 04/01/23 Ibuprofen [Motrin Ib] 600 mg PO Q6H PRN 11/28/21 04/01/23 Mirtazapine [Remeron] 15 mg PO HS 11/28/21 04/01/23 Multivitamins, Thera [Multivitamin 1 tab PO DAILY 11/28/21 04/01/23 (formulary)] Thiamine [Vitamin B-1] 100 mg PO DAILY 11/28/21 04/01/23 cloNIDine HCL [Catapres] 0.1 mg PO Q4H PRN 11/28/21 04/01/23 ondansetron HCL [Zofran] 8 mg PO Q4-6H PRN 11/28/21 04/01/23 Acetaminophen Tab [Tylenol] 650 mg PO Q4H PRN 04/01/23 04/01/23 Albuterol Nebulized [Ventolin 2.5 mg INHALATION RT-Q4H PRN 04/01/23 04/01/23 Nebulized] Loperamide HCl [Loperamide] 4 mg PO QID PRN 04/01/23 04/01/23 Mag Hydrox/Aluminum Hyd/Simeth 30 ml PO Q4H PRN 04/01/23 04/01/23 [Mylanta Maximum Strength Liq] Melatonin 5 mg PO HS 04/01/23 04/01/23 guaiFENesin SYRUP 100MG/5ML 200 mg PO Q4H PRN 04/01/23 04/01/23 [Robitussin] Previous Rx's Medication Instructions Recorded LORazepam [Ativan] 1 mg PO BID PRN #6 tab 04/03/23 Lurasidone [Latuda] 60 mg PO HS #30 tab 04/03/23 amLODIPine [Norvasc] 5 mg PO DAILY #30 tab 04/03/23 buPROPion XL [Wellbutrin XL] 300 mg PO DAILY #30 tab 04/03/23 predniSONE 50 mg PO DAILY #3 tab 04/03/23 Allergies Allergy/AdvReac Type Severity Reaction Status Date / Time No Known Allergies Allergy Verified 04/01/23 16:51 Review of Systems ROS Statement: Those systems with pertinent positive or pertinent negative responses have been documented in the HPI. ROS Other: All systems not noted in ROS Statement are negative. Past Medical History Past Medical History: Hypertension Additional Past Medical History / Comment(s): Diverticulitis History of Any Multi-Drug Resistant Organisms: None Reported Past Surgical History: Bowel Resection, Hernia Repair, Joint Replacement Additional Past Surgical History / Comment(s): approximately 10 abdominal surgeries, bilateral hip replacement Past Anesthesia/Blood Transfusion Reactions: No Reported Reaction Past Psychological History: Anxiety, Depression Smoking Status: Current every day smoker Past Alcohol Use History: Abuse Past Drug Use History: Cocaine, Marijuana General Exam Limitations: no limitations General appearance: alert, in no apparent distress Head exam: Present: atraumatic, normocephalic, normal inspection Eye exam: Present: normal appearance, PERRL, EOMI. Absent: scleral icterus, conjunctival injection, periorbital swelling ENT exam: Present: normal exam, normal oropharynx, mucous membranes moist Neck exam: Present: normal inspection, full ROM. Absent: tenderness, meningismus, lymphadenopathy Respiratory exam: Present: respiratory distress, wheezes, rhonchi. Absent: normal lung sounds bilaterally, rales, stridor Cardiovascular Exam: Present: regular rate, normal rhythm, normal heart sounds. Absent: systolic murmur, diastolic murmur, rubs, gallop, clicks GI/Abdominal exam: Present: soft, normal bowel sounds. Absent: distended, tenderness, guarding, rebound, rigid Course Vital Signs 04/01/23 04/01/23 04/01/23 13:32 15:00 15:16 Temperature Pulse Rate 72 75 75 Respiratory 20 Rate Blood Pressure 138/80 O2 Sat by Pulse 97 Oximetry 04/01/23 16:50 Temperature 98.0 F Pulse Rate 66 Respiratory 20 Rate Blood Pressure 136/86 O2 Sat by Pulse 98 Oximetry - Reevaluation(s) Reevaluation #1: 04/01/23 15:46 Reevaluated after 2 or breathing treatments he's had minimal improvement continues to have diffuse bronchospasms Medical Decision Making - Medical Decision Making Was pt. sent in by a medical professional or institution (, PA, CASH GRAIN FARMER, urgent care, hospital, or detention...) When possible be specific @ -No Did you speak to anyone other than the patient for history (EMS, parent, family, police, friend...)? What history was obtained from this source @ -No Did you review nursing and triage notes (agree or disagree)? Why? @ -I reviewed and agree with nursing and triage notes Were old charts reviewed (outside hosp., previous admission, EMS record, old EKG, old radiological studies, urgent care reports/EKG's, detention records)? Report findings @ -Labs, imaging Differential Diagnosis (chest pain, altered mental status, abdominal pain women, abdominal pain men, vaginal bleeding, weakness, fever, dyspnea, syncope, headache, dizziness, GI bleed, back pain, seizure, CVA, palpatations, mental health, musculoskeletal)? @ -[Differential Dyspnea: Coronary syndrome, arrhythmia, tamponade, asthma, COPD, pulmonary embolism, pneumonia, pneumothorax, pulmonary effusion, anaphylaxis, diabetic ketoacidosis, flailed chest, pulmonary contusion, diaphragmatic rupture, anemia, neuromuscular, this is not meant to be an all-inclusive list. s EKG interpreted by me (3pts min.). @ -As above X-rays interpreted by me (1pt min.). @ -Chest x-ray shows COPD changes CT interpreted by me (1pt min.). @ -None done U/S interpreted by me (1pt. min.). @ -None done What testing was considered but not performed or refused? (CT, X-rays, U/S, labs)? Why? @ -None What meds were considered but not given or refused? Why? @ -None Did you discuss the management of the patient with other professionals (professionals i.e. DrGibson, PA, CASH GRAIN FARMER, lab, RT, psych nurse, social media marketer, orthopaedic physician assistant, teacher, probation and parole officer, case operator)? Give summary @ -[Jewelry Store Manager for admission Was smoking cessation discussed for >3mins.? @ -No Was critical care preformed (if so, how long)? @ -No Were there social determinants of health that impacted care today? How? (Homelessness, low income, unemployed, alcoholism, drug addiction, transporta tion, low edu. Level, literacy, decrease access to med. care, [place] [facility], rehab)? @ -No Was there de-escalation of care discussed even if they declined (Discuss DNR or withdrawal of care, Hospice)? DNR status @ -No What co-morbidities impacted this encounter? (DM, HTN, Smoking, COPD, CAD, Cancer, CVA, ARF, Chemo, Hep., AIDS, mental health diagnosis, sleep apnea, morbid obesity)? @ -None Was patient admitted / discharged? Hospital course, mention meds given and route, prescriptions, significant lab abnormalities, going to OR and other pertinent info. @ -Admitted patient continues to have dyspnea, increasing shortness of breath after multiple breathing treatments, steroids. Patient be admitted for COPD exacerbation. Patient is having chest pain will be asked for cardiac rule out also. Undiagnosed new problem with uncertain prognosis? @ -No Drug Therapy requiring intensive monitoring for toxicity (Heparin, Nitro, Insulin, Cardizem)? @ -No Were any procedures done? @ -No Diagnosis/symptom? @ -COPD exacerbation Acute, or Chronic, or Acute on Chronic? @ -[Acute Uncomplicated (without systemic symptoms) or Complicated (systemic symptoms)? @ -[, Complicated Side effects of treatment? @ -No Exacerbation, Progression, or Severe Exacerbation? @ -[Exacerbation Poses a threat to life or bodily function? How? (Chest pain, USA, MD, pneumonia, PE, COPD, DKA, ARF, appy, cholecystitis, CVA, Diverticulitis, Homicidal, Suicidal, threat to staff... and all critical care pts) @ -yes COPD, possible respiratory failure - Lab Data Result diagrams: 04/01/23 13:58 04/01/23 13:58 Lab Results 04/01/23 04/01/23 04/01/23 Range/Units 13:58 13:58 13:58 WBC 8.8 (3.8-10.6) k/uL RBC 4.55 (4.30-5.90) m/uL Hgb 14.8 (13.0-17.5) gm/dL Hct 44.5 (39.0-53.0) % MCV 97.9 (80.0-100.0) fL MCH 32.5 (25.0-35.0) pg MCHC 33.2 (31.0-37.0) g/dL RDW 14.3 (11.5-15.5) % Plt Count 238 (150-450) k/uL MPV 7.1 Neutrophils % 69 % Lymphocytes % 23 % Monocytes % 5 % Eosinophils % 2 % Basophils % 1 % Neutrophils # 6.1 (1.3-7.7) k/uL Lymphocytes # 2.0 (1.0-4.8) k/uL Monocytes # 0.4 (0-1.0) k/uL Eosinophils # 0.2 (0-0.7) k/uL Basophils # 0.0 (0-0.2) k/uL PT 10.3 (10.0-12.5) sec INR 0.9 (<1.2) APTT 22.2 (22.0-30.0) sec Sodium 139 (137-145) mmol/L Potassium 4.3 (3.5-5.1) mmol/L Chloride 105 (98-107) mmol/L Carbon Dioxide 25 (22-30) mmol/L Anion Gap 9 mmol/L BUN 20 (9-20) mg/dL Creatinine 0.66 (0.66-1.25) mg/dL Est GFR (CKD-EPI)AfAm >90 (>60 ml/min/1.73 sqM) Est GFR (CKD-EPI)NonAf >90 (>60 ml/min/1.73 sqM) Glucose 107 H (74-99) mg/dL Plasma Lactic Acid Erick (0.7-2.0) mmol/L Calcium 9.7 (8.4-10.2) mg/dL Magnesium 2.3 (1.6-2.3) mg/dL Total Bilirubin 0.3 (0.2-1.3) mg/dL AST 29 (17-59) U/L ALT 40 (4-49) U/L Alkaline Phosphatase 78 (38-126) U/L Troponin I (0.000-0.034) ng/mL Total Protein 6.8 (6.3-8.2) g/dL Albumin 3.8 (3.5-5.0) g/dL Influenza Type A (PCR) (Not Detectd) Influenza Type B (PCR) (Not Detectd) RSV (PCR) (Not Detectd) SARS-CoV-2 (PCR) (Not Detectd) 04/01/23 04/01/23 04/01/23 Range/Units 13:58 13:58 13:58 WBC (3.8-10.6) k/uL RBC (4.30-5.90) m/uL Hgb (13.0-17.5) gm/dL Hct (39.0-53.0) % MCV (80.0-100.0) fL MCH (25.0-35.0) pg MCHC (31.0-37.0) g/dL RDW (11.5-15.5) % Plt Count (150-450) k/uL MPV Neutrophils % % Lymphocytes % % Monocytes % % Eosinophils % % Basophils % % Neutrophils # (1.3-7.7) k/uL Lymphocytes # (1.0-4.8) k/uL Monocytes # (0-1.0) k/uL Eosinophils # (0-0.7) k/uL Basophils # (0-0.2) k/uL PT (10.0-12.5) sec INR (<1.2) APTT (22.0-30.0) sec Sodium (137-145) mmol/L Potassium (3.5-5.1) mmol/L Chloride (98-107) mmol/L Carbon Dioxide (22-30) mmol/L Anion Gap mmol/L BUN (9-20) mg/dL Creatinine (0.66-1.25) mg/dL Est GFR (CKD-EPI)AfAm (>60 ml/min/1.73 sqM) Est GFR (CKD-EPI)NonAf (>60 ml/min/1.73 sqM) Glucose (74-99) mg/dL Plasma Lactic Acid Erick 1.8 (0.7-2.0) mmol/L Calcium (8.4-10.2) mg/dL Magnesium (1.6-2.3) mg/dL Total Bilirubin (0.2-1.3) mg/dL AST (17-59) U/L ALT (4-49) U/L Alkaline Phosphatase (38-126) U/L Troponin I <0.012 (0.000-0.034) ng/mL Total Protein (6.3-8.2) g/dL Albumin (3.5-5.0) g/dL Influenza Type A (PCR) Not Detected (Not Detectd) Influenza Type B (PCR) Not Detected (Not Detectd) RSV (PCR) Not Detected (Not Detectd) SARS-CoV-2 (PCR) Not Detected (Not Detectd) - EKG Data -: EKG Interpreted by Me EKG Comments: EKG performed at 14:09 sinus rhythm with rate of 70 AK 152 QRS 84 QT/QTC 369/390 Disposition Clinical Impression: COPD exacerbation, Chest pain Disposition: ADMITTED IP TO THIS HOSP Condition: Stable Time of Disposition: 15:48
[2023-04-01 14:27] LABS: Basophils % (A) 1 %; Eosinophils # (A) 0.2 k/uL (0-0.7); Eosinophils % (A) 2 %; HCT 44.5 % (39.0-53.0); HGB 14.8 gm/dL (13.0-17.5); Lymphocytes % (A) 23 %; MCH 32.5 pg (25.0-35.0); MCHC 33.2 g/dL (31.0-37.0); MCV 97.9 fL (80.0-100.0); Mean Platelet Volume 7.1; Monocytes # (A) 0.4 k/uL (0-1.0); Monocytes % (A) 5 %; Neutrophils # (A) 6.1 k/uL (1.3-7.7); Neutrophils % (A) 69 %; Platelet Count 238 k/uL (150-450); RBC 4.55 m/uL (4.30-5.90); RDW 14.3 % (11.5-15.5); WBC 8.8 k/uL (3.8-10.6)
--- NOTE | 2023-04-01 14:32 | XR ---
EXAMINATION TYPE: XR chest 2V DATE OF EXAM: 04/01/2023 COMPARISON: 11/28/2021 HISTORY: 53 year-old male shortness of breath, difficulty breathing, chest pain TECHNIQUE: PA and lateral views FINDINGS: The cardiomediastinal silhouette, aorta, and pulmonary vasculature are within normal limits. Hyperinf lation. Mild interstitial prominence is unchanged. No consolidation or pleural effusion. Slight dextroconvexed curvature. IMPRESSION: COPD and chronic changes. No definite acute process.
[2023-04-01 14:38] LABS: ALT 40 U/L (4-49); AST 29 U/L (17-59); African American GFR (CKD) >90 (>60 ml/min/1.73 sqM); Albumin 3.8 g/dL (3.5-5.0); Alkaline Phosphatase 78 U/L (38-126); Anion Gap 9 mmol/L; Blood Urea Nitrogen 20 mg/dL (9-20); Calcium 9.7 mg/dL (8.4-10.2); Carbon Dioxide 25 mmol/L (22-30); Chloride 105 mmol/L (98-107); Glucose 107 mg/dL (74-99); Magnesium 2.3 mg/dL (1.6-2.3); Non-African American GFR(CKD) >90 (>60 ml/min/1.73 sqM); Potassium 4.3 mmol/L (3.5-5.1); Sodium 139 mmol/L (137-145); Total Bilirubin 0.3 mg/dL (0.2-1.3); Total Protein 6.8 g/dL (6.3-8.2)
[2023-04-01 14:41] LABS: INR 0.9 (<1.2); Partial Thromboplastin Time 22.2 sec (22.0-30.0); Prothrombin Time 10.3 sec (10.0-12.5)
[2023-04-01] MEDS ORDERED: ALBUTEROL NEBULIZED 2.5 MG/3 ML INHALATION STA (14:47)
[2023-04-01] MEDS ORDERED: IPRATROPIUM-ALBUTEROL 3 ML NEB INHALATION PRN (15:48)
[2023-04-01] MEDS ORDERED: NALOXONE 0.4 MG/ML 1 ML VIAL IVP PRN (15:48)
[2023-04-01] MEDS ORDERED: BENZONATATE 100 MG CAP PO PRN (15:48)
[2023-04-01] MEDS ORDERED: ONDANSETRON 4 MG/2 ML VIAL IVP PRN (16:01)
--- NOTE | 2023-04-01 16:29 | P.HPIM ---
History of Present Illness H&P Date: 04/01/23 53-year-old male with PMH of hypertension, anxiety, PTSD, history of alcohol and crack cocaine abuse presents the ED for shortness of breath and wheezing. Patient reports being at [facility] for the past 2 weeks. Symptoms have been progressively getting worse since then. Reports cough productive of sputum (unable to describe). Reports chest tightness with cough. Admits to smoking crack and atleast 1/2 pack of cigarettes daily since 18 years old. Attempted breathing treatments, course of Augmentin and Azithromycin with no relief. In the ED, he underwent extensive evaluation. Vital signs stable. CBC was unremarkable. Coag panel within normal limits. CMP showed glucose 107. Lactic acid 1.8. Troponin less than 0.012. COVID-19, RSV, influenza negative. Chest x-ray no acute process. EKG sinus rhythm. Patient is admitted for COPD exacerbation with pulmonology consultation. Started on DuoNeb scheduled and as needed for shortness of breath and wheezing along with Solu-Medrol. General: non toxic, no distress, appears at stated age Derm: warm, dry Head: atraumatic, normocephalic, symmetric Eyes: EOMI, no lid lag, anicteric sclera Mouth: no lip lesion, mucus membranes moist Cardiovascular: S1S2 reg, no murmur Lungs: Diffuse wheezing bilateral, no rhonchi, no rales , no accessory muscle use Abdominal: soft, nontender to palpation, no guarding, no appreciable organomegaly Ext: no gross muscle atrophy, no edema, no contractures Neuro: No focal neurologic deficits Psych: Alert, oriented, appropriate affect Based on my assessment of this patient, this patient meets a high complexity level of care. Patient has an acute diagnosis of COPD exacerbation that poses a threat to life or bodily function. COPD exacerbation secondary to acute bronchitis: DuoNeb scheduled and as needed for shortness of breath or wheezing. Pulmicort INH BID. Solumedrol 60 mg IV Q6H. Doxycycline 100 mg PO BID x 5 days. Telemetry monitoring. Pulmonology consult. Hypertension: Amlodipine 5 mg PO QD. Anxiety and PTSD: Ativan 1 mg PO TID PRN. History of alcohol abuse History of drug abuse CODE STATUS: FULL CODE DVT Prophylaxis: Lovenox SQ GI Prophylaxis: Designated medical POA if patient is not able to make medical decisions for themselves: I have reviewed the following sap consultant notes: I have reviewed the results of the following tests: As above I have ordered the following tests: As above I have discussed the care of this patient with the following independent historian: I have independently interpreted the following test below: EKG. CXR. I have discussed the management of this patient with the following physician: Discussed with the ED provider in detail. Past Medical History Past Medical History: Hypertension Additional Past Medical History / Comment(s): Diverticulitis History of Any Multi-Drug Resistant Organisms: None Reported Past Surgical History: Bowel Resection, Hernia Repair, Joint Replacement Additional Past Surgical History / Comment(s): approximately 10 abdominal surgeries, bilateral hip replacement Past Anesthesia/Blood Transfusion Reactions: No Reported Reaction Past Psychological History: Anxiety, Depression Smoking Status: Current every day smoker Past Alcohol Use History: Abuse Past Drug Use History: Cocaine, Marijuana Medications and Allergies Home Medications Medication Instructions Recorded Confirmed Type Acetaminophen [Tylenol 8 Hour] 650 mg PO Q4H PRN MDD 1950 MG 11/28/21 11/28/21 History Calcium, Magnesium, Zinc, With Vit 1 tab PO TID PRN 11/28/21 11/28/21 History D Chlorpheniramine Maleate 4 mg PO Q4H PRN 11/28/21 11/28/21 History [Chlor-Trimeton] Docusate [Colace] 100 mg PO BID PRN 11/28/21 11/28/21 History Ibuprofen [Motrin Ib] 600 mg PO Q6H PRN 11/28/21 11/28/21 History Mirtazapine [Remeron] 15 - 30 mg PO HS PRN 11/28/21 11/28/21 History Multivitamins, Thera [Multivitamin 1 tab PO DAILY 11/28/21 11/28/21 History (formulary)] Thiamine [Vitamin B-1] 100 mg PO DAILY 11/28/21 11/28/21 History bisacodyL [Dulcolax] 5 mg PO BID PRN 11/28/21 11/28/21 History busPIRone HCl [Buspar] 10 mg PO TID 11/28/21 11/28/21 History cloNIDine HCL [Catapres] 0.1 - 0.3 mg PO Q4H PRN 11/28/21 11/28/21 History ondansetron HCL [Zofran] 8 mg PO Q6H PRN 11/28/21 11/28/21 History amLODIPine [Norvasc] 5 mg PO DAILY 30 Days #30 tab 11/29/21 Rx Allergies Allergy/AdvReac Type Severity Reaction Status Date / Time No Known Allergies Allergy Verified 11/28/21 15:41 Physical Exam Vitals: Vital Signs Pulse Resp BP Pulse Ox 04/01/23 15:16 75 04/01/23 15:00 75 04/01/23 13:32 72 20 138/80 97 Intake and Output 04/01/23 04/01/23 04/01/23 06:59 14:59 22:59 Other: Weight 108.862 kg Results CBC & Chem 7: 04/01/23 13:58 04/01/23 13:58 Labs: Abnormal Lab Results - Last 24 Hours (Table) 04/01/23 Range/Units 13:58 Glucose 107 H (74-99) mg/dL
[2023-04-01] MEDS: IPRATROPIUM-ALBUTEROL 3 ML NEB INHALATION SCH ×2 (16:38→18:11)
[2023-04-01] MEDS: LORazepam 1 MG TAB PO PRN (16:55)
[2023-04-01] MEDS: methylPREDNISolone SOD SUCCI 125 MG/2 ML VIAL IV SCH (17:38)
[2023-04-01] MEDS: BUDESONIDE 1 MG/2 ML NEBU INHALATION SCH (18:18)
[2023-04-01] MEDS: DOXYCYCLINE 100 MG CAP PO SCH (20:03)
[2023-04-01] MEDS: MELATONIN 3 MG TABLET PO PRN (21:04)
[2023-04-01] MEDS: MIRTAZAPINE 15 MG TAB PO SCH (21:04)
[2023-04-01] MEDS: ACETAMINOPHEN TAB 325 MG TAB PO PRN (21:07)
[2023-04-02] MEDS: LORazepam 1 MG TAB PO PRN ×2 (00:33→08:03)
[2023-04-02] MEDS: ACETAMINOPHEN TAB 325 MG TAB PO PRN ×4 (00:33→20:37)
[2023-04-02] MEDS: methylPREDNISolone SOD SUCCI 125 MG/2 ML VIAL IV SCH ×5 (00:33→23:14)
[2023-04-02] MEDS: amLODIPine 5 MG TAB PO SCH (08:02)
[2023-04-02] MEDS: ENOXAPARIN 40 MG/0.4 ML SYRINGE SQ SCH (08:03)
[2023-04-02] MEDS: DOXYCYCLINE 100 MG CAP PO SCH ×2 (08:03→20:38)
[2023-04-02] MEDS: FORMOTEROL FUMARATE 20 MCG/2 ML NEBU INHALATION SCH ×2 (08:29→18:04)
[2023-04-02] MEDS: BUDESONIDE 1 MG/2 ML NEBU INHALATION SCH ×2 (08:29→18:04)
[2023-04-02] MEDS: IPRATROPIUM-ALBUTEROL 3 ML NEB INHALATION SCH ×4 (08:29→18:04)
[2023-04-02] MEDS ORDERED: LORazepam 2 MG/ML INJ IV STA (08:52)
--- NOTE | 2023-04-02 10:42 | P.CNPUL ---
History of Present Illness Consult date: 04/02/23 Requesting physician: Bill Vila Reason for consult: dyspnea Chief complaint: Shortness of breath, cough, congestion History of present illness: This is a 53-year-old male patient with a history of attention, diverticulitis with previous bowel resection, anxiety/depression, 35 years of smoking, vaping, marijuanause , heavy alcohol abuse and crack cocaine use. He is currently in rehabilitation at [facility] and was admitted there on 03/22/2023. He was having ongoing issues with shortness of breath, cough and congestion and was admitted here yesterday for the same. Chest x-ray showed no acute pulmonary process. A count 8.8. Hemoglobin 14.8. Sodium 139. Potassium 4.3. Bicarb 25. BUN 20. Creatinine 0.66. Glucose 107. AST 29. ALT 40. Troponin negative 1. Viral screen negative. He is seen today in consultation on the regular medical floor. He sitting up in bed. Awake and alert in no acute distress. Maintaining O2 saturations in the 90s on room air. He has a dry nonproductive cough. No fever chills. He is feeling better today compared to yesterday. He was initiated on inhalations, Pulmicort and Perforomist inhalations, IV Solu-Medrol. Antibiotics in the form of Vibramycin. Lovenox for DVT prophylaxis. Review of Systems REVIEW OF SYSTEMS: CONSTITUTIONAL: Denies any recent significant weight loss or weight gain. EYES: Denies change in vision. EARS, NOSE, MOUTH, THROAT: Denies headaches, denies sore throat. CARDIOVASCULAR: Denies chest pain, palpitations or syncopal episodes. RESPIRATORY: Positive for shortness of breath, cough, congestion no hemoptysis. GASTROINTESTINAL: Denies change in appetite, denies abdominal pain GENITOURINARY: Denies hematuria, denies infections. MUSKULOSKELETAL: Denies pain, denies swelling. INTEGUMENTARY: Denies rash, denies eczema. NEUROLOGICAL: Denies recent memory loss, no recent seizure activity. PSYCHIATRIC: Denies anxiety, denies depression. HEMATOLOGIC/LYMPHATIC: Denies anemia, denies enlarged lymph nodes. Past Medical History Past Medical History: Hypertension Additional Past Medical History / Comment(s): Diverticulitis History of Any Multi-Drug Resistant Organisms: None Reported Past Surgical History: Bowel Resection, Hernia Repair, Joint Replacement Additional Past Surgical History / Comment(s): approximately 10 abdominal bains rgeries, bilateral hip replacement Past Anesthesia/Blood Transfusion Reactions: No Reported Reaction Past Psychological History: Anxiety, Depression Smoking Status: Current every day smoker Past Alcohol Use History: Abuse Past Drug Use History: Cocaine, Marijuana Medications and Allergies Home Medications Medication Instructions Recorded Confirmed Type Calcium, Magnesium, Zinc, With Vit 1 tab PO TID PRN 11/28/21 04/01/23 History D Chlorpheniramine Maleate 4 mg PO Q4H PRN 11/28/21 04/01/23 History [Chlor-Trimeton] Docusate [Colace] 100 mg PO BID PRN 11/28/21 04/01/23 History Ibuprofen [Motrin Ib] 600 mg PO Q6H PRN 11/28/21 04/01/23 History Mirtazapine [Remeron] 15 mg PO HS 11/28/21 04/01/23 History Multivitamins, Thera [Multivitamin 1 tab PO DAILY 11/28/21 04/01/23 History (formulary)] Thiamine [Vitamin B-1] 100 mg PO DAILY 11/28/21 04/01/23 History busPIRone HCl [Buspar] 10 mg PO TID 11/28/21 04/01/23 History cloNIDine HCL [Catapres] 0.1 mg PO Q4H PRN 11/28/21 04/01/23 History ondansetron HCL [Zofran] 8 mg PO Q4-6H PRN 11/28/21 04/01/23 History Acetaminophen Tab [Tylenol] 650 mg PO Q4H PRN 04/01/23 04/01/23 History Albuterol Nebulized [Ventolin 2.5 mg INHALATION RT-Q4H PRN 04/01/23 04/01/23 History Nebulized] Amoxic-Pot Clav 875-125Mg 1 tab PO BID 04/01/23 04/01/23 History [Augmentin 875-125] Loperamide HCl [Loperamide] 4 mg PO QID PRN 04/01/23 04/01/23 History Mag Hydrox/Aluminum Hyd/Simeth 30 ml PO Q4H PRN 04/01/23 04/01/23 History [Mylanta Maximum Strength Liq] Melatonin 5 mg PO HS 04/01/23 04/01/23 History guaiFENesin SYRUP 100MG/5ML 200 mg PO Q4H PRN 04/01/23 04/01/23 History [Robitussin] methylPREDNISolone [Medrol Dose See Taper PO DIRECTED 04/01/23 04/01/23 History Pack] Allergies Allergy/AdvReac Type Severity Reaction Status Date / Time No Known Allergies Allergy Verified 04/01/23 16:51 Physical Exam Vitals: Vital Signs Temp Pulse Pulse Resp BP BP Pulse Ox 04/02/23 08:54 78 04/02/23 08:40 79 04/02/23 08:30 79 04/02/23 07:00 98 F 65 18 151/90 97 04/02/23 00:41 98 F 71 18 124/71 96 04/01/23 20:00 98.3 F 82 17 150/85 98 04/01/23 18:33 80 04/01/23 18:18 84 04/01/23 16:50 98.0 F 66 20 136/86 98 04/01/23 15:16 75 04/01/23 15:00 75 04/01/23 13:32 72 20 138/80 97 Intake and Output 04/01/23 04/02/23 04/02/23 22:59 06:59 14:59 Intake Total 120 Balance 120 Intake: Oral 120 Other: # Voids 1 2 0 Weight 108.862 kg GENERAL EXAM: Alert, pleasant 53-year-old male patient, on room air, comfortable in no apparent distress. HEAD: Normocephalic. EYES: Normal reaction of pupils, equal size. NOSE: Clear with pink turbinates. THROAT: No erythema or exudates. NECK: No masses, no JVD. CHEST: No chest wall deformity. LUNGS: Equal air entry with few scattered rhonchi and expiratory wheeze. CVS: S1 and S2 normal with no audible murmur, regular rhythm. ABDOMEN: No hepatosplenomegaly, normal bowel sounds, no guarding or rigidity. SPINE: No scoliosis or deformity SKIN: No rashes CENTRAL NERVOUS SYSTEM: No focal deficits, tone is normal in all 4 extremities. EXTREMITIES: There is no peripheral edema. No clubbing, no cyanosis. Peripheral pulses are intact. Results - Laboratory Findings CBC and BMP: 04/01/23 13:58 04/01/23 13:58 PT/INR, D-dimer PT 10.3 sec (10.0-12.5) 04/01/23 13:58 INR 0.9 (<1.2) 04/01/23 13:58 Abnormal lab findings: Abnormal Labs 04/01/23 13:58 Glucose 107 H - Diagnostic Findings Chest x-ray: image reviewed (No acute pulmonary process) Assessment and Plan Assessment: Acute exacerbation of suspected significant chronic obstructive pulmonary disease her chest x-ray shows no acute pulmonary process. Pro-calcitonin pending. Viral screen negative. Chronic and ongoing tobacco dependence of greater than 35 years History of vaping History of marijuana use History of heavy alcohol abuse and crack cocaine use currently residing at [facility] since 03/22/2023 History of diverticulitis with previous bowel resection History of anxiety/depression Plan: The patient was seen and evaluated Chest x-ray, labs and medications reviewed Continue DuoNeb inhalations, Pulmicort and Perforomist inhalations, steroids Check a pro-calcitonin Continue doxycycline for now Educated regarding the importance of complete smoking cessation Educated regarding the importance of alcohol cessation Educated regarding the importance drug cessation Currently stable and on room air Possible discharge in the a.m. We will continue to follow and make further recommendations based on his clinical status I have personally seen and examined the patient, performed the documentation and the assessment and plan as written. Number of minutes spent on the visit: 20.
--- NOTE | 2023-04-02 11:20 | XR ---
EXAMINATION TYPE: XR KUB DATE OF EXAM: 04/02/2023 Comparison: None Clinical History: 53-year-old male Abdominal Pain Findings: Coils relating to prior mesh repair. Scattered small air-fluid levels throughout the abdomen. Moderate stool burden. No evidence for free intraperitoneal air. Impression: 1. Nonspecific scattered air-fluid levels throughout the abdomen. Findings could represent an enterit is or ileus. Follow-up if concern for early small bowel obstruction. 2. Moderate stool burden.
[2023-04-02] MEDS: DOCUSATE 100 MG CAP PO PRN ×2 (12:23→20:38)
[2023-04-02] MEDS: NICOTINE 21MG/24HR PATCH TRANSDERM SCH (12:24)
--- NOTE | 2023-04-02 12:24 | P.PN ---
Subjective Progress Note Date: 04/02/23 53-year-old male with PMH of hypertension, anxiety, PTSD, history of alcohol and crack cocaine abuse presents the ED for shortness of breath and wheezing. Patient reports being at [facility] for the past 2 weeks. Symptoms have been progressively getting worse since then. Reports cough productive of sputum (unable to describe). Reports chest tightness with cough. Admits to smoking crack and atleast 1/2 pack of cigarettes daily since 18 years old. Attempted breathing treatments, course of Augmentin and Azithromycin with no relief. In the ED, he underwent extensive evaluation. Vital signs stable. CBC was unremarkable. Coag panel within normal limits. CMP showed glucose 107. Lactic acid 1.8. Troponin less than 0.012. COVID-19, RSV, influenza negative. Chest x-ray no acute process. EKG sinus rhythm. Patient is admitted for COPD exacerbation with pulmonology consultation. Started on DuoNeb scheduled and as needed for shortness of breath and wheezing along with Solu-Medrol. 04/02 Patient was seen and examined. He reports increased anxiousness. Previously on Welbutryn and Latuda. Breathing better. Pulmonology consulted, pro-qian ordered. General: non toxic, no distress, appears at stated age Derm: warm, dry Head: atraumatic, normocephalic, symmetric Eyes: EOMI, no lid lag, anicteric sclera Mouth: no lip lesion, mucus membranes moist Cardiovascular: S1S2 reg, no murmur Lungs: Decreased BS bilateral, no rhonchi, no rales , no accessory muscle use Abdominal: soft, nontender to palpation, no guarding, no appreciable organomegaly Ext: no gross muscle atrophy, no edema, no contractures Neuro: No focal neurologic deficits Psych: Alert, oriented, anxious Based on my assessment of this patient, this patient meets a moderate complexity level of care. Patient has an acute diagnosis of COPD exacerbation that poses a threat to life or bodily function. COPD exacerbation secondary to acute bronchitis: DuoNeb scheduled and as needed for shortness of breath or wheezing. Pulmicort INH BID. Solumedrol 60 mg IV Q6H. Doxycycline 100 mg PO BID x 5 days. Telemetry monitoring. Pulmonology on board. Hypertension: Amlodipine 5 mg PO QD. Anxiety and PTSD: Ativan 1 mg IV Q4H PRN. History of alcohol abuse History of drug abuse CODE STATUS: FULL CODE DVT Prophylaxis: Lovenox SQ GI Prophylaxis: Protonix PO Designated medical POA if patient is not able to make medical decisions for themselves: I have reviewed the following eap consultant notes: Pulmonology note I have reviewed the results of the following tests: I have ordered the following tests: I have discussed the care of this patient with the following independent historian: I have independently interpreted the following test below: I have discussed the management of this patient with the following physician: Objective - Vital Signs Vital signs: Vital Signs Temp 98 F 04/02/23 07:00 Pulse 84 04/02/23 12:08 Resp 18 04/02/23 07:00 BP 151/90 04/02/23 07:00 Pulse Ox 97 04/02/23 07:00 FiO2 Intake & Output 04/01/23 04/02/23 04/02/23 18:59 06:59 18:59 Intake Total 120 Balance 120 Weight 108.862 kg Intake: Oral 120 Other: Voiding Method Toilet # Voids 2 0 - Labs CBC & Chem 7: 04/01/23 13:58 04/01/23 13:58 Labs: Abnormal Lab Results - Last 24 Hours (Table) 04/01/23 Range/Units 13:58 Glucose 107 H (74-99) mg/dL
[2023-04-02] MEDS: LORazepam 2 MG/ML INJ IV PRN ×2 (15:19→20:37)
[2023-04-02] MEDS: MELATONIN 3 MG TABLET PO PRN (20:37)
[2023-04-02] MEDS: MIRTAZAPINE 15 MG TAB PO SCH (20:38)
[2023-04-03] MEDS: LORazepam 2 MG/ML INJ IV PRN ×2 (02:35→08:24)
[2023-04-03] MEDS: ACETAMINOPHEN TAB 325 MG TAB PO PRN ×2 (02:35→08:25)
[2023-04-03] MEDS: methylPREDNISolone SOD SUCCI 125 MG/2 ML VIAL IV SCH (06:16)
[2023-04-03] MEDS ORDERED: PANTOPRAZOLE 40 MG TABLET PO SCH (07:30)
[2023-04-03 07:52] VITALS: BP 128/78; RESP 15; TEMP 98.2
[2023-04-03] MEDS: ENOXAPARIN 40 MG/0.4 ML SYRINGE SQ SCH (08:24)
[2023-04-03] MEDS: NICOTINE 21MG/24HR PATCH TRANSDERM SCH (08:25)
[2023-04-03] MEDS: amLODIPine 5 MG TAB PO SCH (08:25)
[2023-04-03] MEDS: DOCUSATE 100 MG CAP PO PRN (08:25)
[2023-04-03] MEDS: IPRATROPIUM-ALBUTEROL 3 ML NEB INHALATION SCH ×2 (08:57→12:22)
[2023-04-03] MEDS: BUDESONIDE 1 MG/2 ML NEBU INHALATION SCH (08:57)
[2023-04-03] MEDS: FORMOTEROL FUMARATE 20 MCG/2 ML NEBU INHALATION SCH (08:59)
[2023-04-03 09:07] VITALS: PULSE 79
[2023-04-03] MEDS ORDERED: LORazepam 1 MG TAB PO PRN (10:36)
--- NOTE | 2023-04-03 13:08 | P.DS ---
Providers Date of admission: 04/01/23 15:56 Expected date of discharge: 04/03/23 Attending physician: Bill Vila MD Consults: 04/01/23 15:48 Consult Physician Routine Consulting Provider: Higinio Cardenas Consult Reason/Comments: COPD Do you want consulting provider notified?: Yes Primary care physician: Physician Nonstaff Hospital Course: 53-year-old male with PMH of hypertension, anxiety, PTSD, history of alcohol and crack cocaine abuse presents the ED for shortness of breath and wheezing. Patient reports being at [facility] for the past 2 weeks. Symptoms have been progressively getting worse since then. Reports cough productive of sputum (unable to describe). Reports chest tightness with cough. Admits to smoking crack and atleast 1/2 pack of cigarettes daily since 18 years old. Attempted breathing treatments, course of Augmentin and Azithromycin with no relief. In the ED, he underwent extensive evaluation. Vital signs stable. CBC was unremarkable. Coag panel within normal limits. CMP showed glucose 107. Lactic acid 1.8. Troponin less than 0.012. COVID-19, RSV, influenza negative. Chest x-ray no acute process. EKG sinus rhythm. Patient is admitted for COPD exacerbation with pulmonology consultation. Started on DuoNeb scheduled and as needed for shortness of breath and wheezing along with Solu-Medrol. 04/02 Patient was seen and examined. He reports increased anxiousness. Previously on Welbutryn and Latuda. Breathing better. Pulmonology consulted, pro-qian ordered. 04/03 Patient was seen and examined. Breathing improved. I will start Welbutryn 300 mg PO QD and Latuda 60 mg PO QHS. Continue Ativan 1 mg PO BID PRN for anxiety. 3 more days of Prednisone to complete total 5 days. Start Amlodipine 5 mg PO QD. Pro-qian negative, antibiotics discontinued. Plans for discharge back to [facility] today. He reports an extensive history of bowel surgery in the past, KUB shows non specific bowel gas, eating well with no N/V, having multiple bowel movements. He is advised to establish care with a Psychiatrist on discharge. Pertinent studies include CXR, KUB. General: non toxic, no distress, appears at stated age Derm: warm, dry Head: atraumatic, normocephalic, symmetric Eyes: EOMI, no lid lag, anicteric sclera Mouth: no lip lesion, mucus membranes moist Cardiovascular: S1S2 reg, no murmur Lungs: Decreased BS bilateral, no rhonchi, no rales , no accessory muscle use Abdominal: soft, nontender to palpation, no guarding, no appreciable organomegaly Ext: no gross muscle atrophy, no edema, no contractures Neuro: No focal neurologic deficits Psych: Alert, oriented, anxious Discharge Diagnosis: COPD exacerbation secondary to acute bronchitis Hypertension Anxiety and PTSD History of alcohol abuse History of drug abuse This complex discharge took 35 minutes to complete. Patient Condition at Discharge: Stable Plan - Discharge Summary Discharge Rx Participant: No New Discharge Prescriptions: New LORazepam [Ativan] 1 mg PO BID PRN #6 tab PRN Reason: Anxiety predniSONE 50 mg PO DAILY #3 tab buPROPion XL [Wellbutrin XL] 300 mg PO DAILY #30 tab Lurasidone [Latuda] 60 mg PO HS #30 tab amLODIPine [Norvasc] 5 mg PO DAILY #30 tab Continue ondansetron HCL [Zofran] 8 mg PO Q4-6H PRN PRN Reason: Nausea Thiamine [Vitamin B-1] 100 mg PO DAILY Ibuprofen [Motrin Ib] 600 mg PO Q6H PRN PRN Reason: Pain Or Fever > 100.5 Docusate [Colace] 100 mg PO BID PRN PRN Reason: Constipation Chlorpheniramine Maleate [Chlor-Trimeton] 4 mg PO Q4H PRN PRN Reason: Allergy Symptoms cloNIDine HCL [Catapres] 0.1 mg PO Q4H PRN PRN Reason: Anxiety Acetaminophen Tab [Tylenol] 650 mg PO Q4H PRN PRN Reason: Fever And/ Or Pain Mag Hydrox/Aluminum Hyd/Simeth [Mylanta Maximum Strength Liq] 30 ml PO Q4H PRN PRN Reason: Indigestion Melatonin 5 mg PO HS guaiFENesin SYRUP 100MG/5ML [Robitussin] 200 mg PO Q4H PRN PRN Reason: Cough Mirtazapine [Remeron] 15 mg PO HS Multivitamins, Thera [Multivitamin (formulary)] 1 tab PO DAILY Calcium, Magnesium, Zinc, With Vit D 1 tab PO TID PRN PRN Reason: muscle cramps Albuterol Nebulized [Ventolin Nebulized] 2.5 mg INHALATION RT-Q4H PRN PRN Reason: Shortness Of Breath Loperamide HCl [Loperamide] 4 mg PO QID PRN PRN Reason: Diarrhea Discontinued busPIRone HCl [Buspar] 10 mg PO TID methylPREDNISolone [Medrol Dose Pack] See Taper PO DIRECTED Amoxic-Pot Clav 875-125Mg [Augmentin 875-125] 1 tab PO BID Discharge Medication List Calcium, Magnesium, Zinc, With Vit D 1 tab PO TID PRN 11/28/21 [History] Chlorpheniramine Maleate [Chlor-Trimeton] 4 mg PO Q4H PRN 11/28/21 [History] Docusate [Colace] 100 mg PO BID PRN 11/28/21 [History] Ibuprofen [Motrin Ib] 600 mg PO Q6H PRN 11/28/21 [History] Mirtazapine [Remeron] 15 mg PO HS 11/28/21 [History] Multivitamins, Thera [Multivitamin (formulary)] 1 tab PO DAILY 11/28/21 [History] Thiamine [Vitamin B-1] 100 mg PO DAILY 11/28/21 [History] cloNIDine HCL [Catapres] 0.1 mg PO Q4H PRN 11/28/21 [History] ondansetron HCL [Zofran] 8 mg PO Q4-6H PRN 11/28/21 [History] Acetaminophen Tab [Tylenol] 650 mg PO Q4H PRN 04/01/23 [History] Albuterol Nebulized [Ventolin Nebulized] 2.5 mg INHALATION RT-Q4H PRN 04/01/23 [History] Loperamide HCl [Loperamide] 4 mg PO QID PRN 04/01/23 [History] Mag Hydrox/Aluminum Hyd/Simeth [Mylanta Maximum Strength Liq] 30 ml PO Q4H PRN 04/01/23 [History] Melatonin 5 mg PO HS 04/01/23 [History] guaiFENesin SYRUP 100MG/5ML [Robitussin] 200 mg PO Q4H PRN 04/01/23 [History] LORazepam [Ativan] 1 mg PO BID PRN #6 tab 04/03/23 [Rx] Lurasidone [Latuda] 60 mg PO HS #30 tab 04/03/23 [Rx] amLODIPine [Norvasc] 5 mg PO DAILY #30 tab 04/03/23 [Rx] buPROPion XL [Wellbutrin XL] 300 mg PO DAILY #30 tab 04/03/23 [Rx] predniSONE 50 mg PO DAILY #3 tab 04/03/23 [Rx] Follow up Appointment(s)/Referral(s): Higinio Cardenas DO [Doctor of Osteopathic Medicine] - 1 Week Nonstaff,Physician [Primary Care Provider] - 1-2 days Patient Instructions/Handouts: COPD (Chronic Obstructive Pulmonary Disease) (DC) Discharge Disposition: OTHER INSTITUTION NOT DEFINED
[2023-04-03] MEDS ORDERED: LURASIDONE 60 MG TAB PO SCH (21:00)
[2023-04-04] MEDS ORDERED: buPROPion XL 300 MG TAB.ER.24H PO SCH (09:00)
== END 2023-04-03 12:53 | disposition other institution (70) ==
LOC: EC 13:31 → 6NMEDSUR 15:56
PROVIDERS: ADMIT Family Medicine; ATTEND Family Medicine
DX: J44.1 Chronic obstructive pulmonary disease with (acute) exacerbation (principal); F17.210 Nicotine dependence, cigarettes, uncomplicated; F32.A Depression, unspecified; F43.10 Post-traumatic stress disorder, unspecified; I10 Essential (primary) hypertension; I25.10 Atherosclerotic heart disease of native coronary artery without angina pectoris; Z90.49 Acquired absence of other specified parts of digestive tract; Z79.899 Other long term (current) drug therapy; Z96.643 Presence of artificial hip joint, bilateral; S27.0XXA Traumatic pneumothorax, initial encounter; S27.808A Other injury of diaphragm, initial encounter; S27.329A Contusion of lung, unspecified, initial encounter; X58.XXXA Exposure to other specified factors, initial encounter; F10.20 Alcohol dependence, uncomplicated; F14.90 Cocaine use, unspecified, uncomplicated; Z87.01 Personal history of pneumonia (recurrent); J20.9 Acute bronchitis, unspecified; J90 Pleural effusion, not elsewhere classified
CPT/HCPCS: 96376 ×2; 96372 ×2; 96375 ×2; 96374; 99285; 36415; 94640 ×5; 93005; 80053; 83605; 83735; 84484; 85025; 85610; 85730; 84145; 87636; 71046; 74018; G0378 ×3; S4990 ×2; J2060 ×2; J2930 ×3; J1650 ×2